=== PATIENT | female | born 1965 | race Caucasian/White ===

== ENCOUNTER 2022-03-02 15:21 | Emergency (ER) | payer OTHER, MEDICAID ==
[~2022-03-02] VITALS: Ht 167.6 cm; Wt 55.0 kg
[2022-03-02 16:39] LABS: BASOPHILS % 0.3 % (0.0-2.0); EOSINOPHILS % 1.1 % (0.0-5.0); HEMATOCRIT. 37.1 % (36.0-48.0); HEMOGLOBIN. 12.7 g/dL (12.0-16.0); LYMPHOCYTES % 26.4 % (20.0-50.0); MEAN CORPUSCULAR HEMOGLOBIN 31.8 pg (28.0-32.0); MEAN CORPUSCULAR VOLUME 92.9 fL (81.0-99.0); MEAN PLATELET VOLUME 6.4 fl (7.4-10.4); NEUTROPHILS % 67.2 % (40.0-76.0); PLATELET 209 x1000/uL (130-400); RED BLOOD CELL COUNT 3.99 mill/uL (4.2-5.4)
[2022-03-02 16:47] LABS: CHLORIDE 100 mEq/L (98-107)
[2022-03-02 23:53] VITALS: BP 126/81
== END 2022-03-02 23:54 | disposition home or self-care (01) ==
LOC: ER 15:21 → EDBD 15:21 → ER 23:54
DX: R07.2 Precordial pain (principal); E87.1 Hypo-osmolality and hyponatremia; R94.31 Abnormal electrocardiogram [ECG] [EKG]; F12.90 Cannabis use, unspecified, uncomplicated; Z72.89 Other problems related to lifestyle
CPT/HCPCS: 36415; 71045; 80053; 83880; 84484; 85025; 93005; 99285

== ENCOUNTER 2022-11-06 12:39 | Emergency (ER) | payer MEDICAID, OTHER ==
[~2022-11-06] VITALS: Ht 160 cm; Wt 61.0 kg
[2022-11-06 12:43] VITALS: BP 183/118
[2022-11-06 14:06] LABS: BASOPHILS % 0.3 % (0.0-2.0); EOSINOPHILS % 3.2 % (0.0-5.0); HEMATOCRIT. 44.9 % (36.0-48.0); HEMOGLOBIN. 15.1 g/dL (12.0-16.0); LYMPHOCYTES % 17.2 % (20.0-50.0); MEAN CORPUSCULAR HEMOGLOBIN 32.1 pg (28.0-32.0); MEAN CORPUSCULAR VOLUME 95.5 fL (81.0-99.0); MEAN PLATELET VOLUME 6.9 fl (7.4-10.4); MONOCYTES % 7.9 % (2.0-8.0); NEUTROPHILS % 71.4 % (40.0-76.0); PLATELET 207 x1000/uL (130-400); RED CELL DISTRIBUTION WIDTH 13.4 % (11.6-14.6)
[2022-11-06 14:12] LABS: CHLORIDE 98 mEq/L (98-107)
[2022-11-06 14:15] LABS: INR 0.9; PROTHROMBIN TIME 10.2 sec (9.6-11.0)
[2022-11-06 15:06] LABS: HCG SCREEN NEGATIVE
[2022-11-06] MEDS ORDERED: IBUP-2028 MT (17:06)
== END 2022-11-06 17:34 | disposition home or self-care (01) ==
LOC: ER 13:13
DX: N93.9 Abnormal uterine and vaginal bleeding, unspecified (principal); I10 Essential (primary) hypertension; Z88.5 Allergy status to narcotic agent; Z88.6 Allergy status to analgesic agent
CPT/HCPCS: 36415; 76830; 76856; 80053; 84703; 85025; 86850; 86900; 99284

== ENCOUNTER 2024-10-23 17:32 | Inpatient (IN) | payer OTHER ==
[~2024-10-23] VITALS: Ht 162.6 cm; Wt 43.1 kg
[~2024-10-23 17:32] MED LIST: ALBU90AE INH; AMLO10TA80 PO; FOLI-43 PO; FURO40TA5 PO; HYDR50TA39 PO; ISOS30TA91 PO; LEVO25TA7 PO; LIP40 PO; PANT40TA51 PO; SUCR1TAB PO
[2024-10-23 19:45] LABS: HEMATOCRIT. 23.2 % (36.0-48.0); HEMOGLOBIN. 7.6 g/dL (12.0-16.0); MEAN CORPUSCULAR HEMOGLOBIN 22.4 pg (28.0-32.0); MEAN CORPUSCULAR HGB CONC 32.6 g/dL (31.0-37.0); MEAN CORPUSCULAR VOLUME 68.7 fL (81.0-99.0); MEAN PLATELET VOLUME 5.6 fl (7.4-10.4); PLATELET 644 x1000/uL (130-400); RED BLOOD CELL COUNT 3.38 mill/uL (4.2-5.4); WHITE BLOOD COUNT 15.6 x1000/uL (4.5-11.0)
[2024-10-23 19:54] LABS: DIFFERENTIAL COMMENT 1
[2024-10-23 19:55] LABS: CHLORIDE 95 mEq/L (98-107); SODIUM 132 mEq/L (136-145)
[2024-10-23 19:56] LABS: CARBON DIOXIDE 30 mEq/L (21-32)
[2024-10-23 19:57] LABS: CALCIUM 7.7 mg/dL (8.7-10.4)
[2024-10-23 20:01] LABS: CREATININE 0.7 mg/dL (0.6-1.0)
[2024-10-23 20:02] LABS: GLUCOSE 96 mg/dL (70-105); TROPONIN I HIGH SENSITIVITY 27 ng/L (3.0-34); UREA NITROGEN BLOOD 10 mg/dL (9-23)
[2024-10-23 20:03] LABS: ALANINE AMINOTRANSFERASE 12 IU/L (10-49); ASPARTATE AMINOTRANSFERASE 20 IU/L (<34)
[2024-10-23 20:04] LABS: ALBUMIN 2.8 g/dL (3.2-4.8); BILIRUBIN DIRECT 0.2 mg/dL (<=3.0); BILIRUBIN TOTAL 0.5 mg/dL (0.1-1.0); PROTEIN TOTAL 6.5 g/dL (6.0-8.3)
[2024-10-23 20:07] LABS: ETHANOL BLOOD < 10 mg/dL (<10)
[2024-10-23 20:10] LABS: INR 1.1; PARTIAL THROMBOPLASTIN TIME 32.5 sec (23.4-31.0); PROTHROMBIN TIME 12.5 sec (9.6-11.0)
[2024-10-23] MEDS: KCL 20MEQ/100ML PREMIX 100 ML IV SCH (20:34)
[2024-10-23] MEDS: POTASSIUM CHLORIDE 20MEQ TABLET SR PO ONE (20:34)
[2024-10-23 20:46] LABS: ANISOCYTOSIS 2+; HYPOCHROMASIA 1+; MICROCYTOSIS 3+; PLATELET ESTIMATE INCREASED
[2024-10-23] MEDS: PIPERACILLIN/TAZO 3.375G/50ML 50 ML IV ONE (20:51)
[2024-10-23] MEDS ORDERED: IPRATROPIUM/ALBUTEROL 0.5-3(2.5)MG/3ML NEB HHN PRN (21:15)
[2024-10-23] MEDS ORDERED: HYDRALAZINE 20MG/ML VIAL IV PRN (21:15)
[2024-10-23] MEDS: VANCOMYCIN 1G PREMIX 200 ML IV ONE (21:26)
[2024-10-23] MEDS ORDERED: AMLODIPINE 10MG TABLET PO SCH (21:45)
[2024-10-23] MEDS: BUDESONIDE 0.5MG/2ML NEB HHN SCH (22:29)
[2024-10-23 22:30] VITALS: PULSE 107; RESP 18; O2SAT 97
[2024-10-23] MEDS: IPRATROPIUM BROMIDE (0.02%) 0.5MG/2.5ML NEB HHN SCH (22:30)
[2024-10-23 23:17] LABS: CREATINE KINASE MB FRACTION 1.1 ng/mL (0.5-3.6); TRIGLYCERIDE 81 mg/dL (0-150)
[2024-10-23 23:18] LABS: LDL CHOLESTEROL 60 mg/dL (5-100); TROPONIN I HIGH SENSITIVITY 28 ng/L (3.0-34)
[2024-10-23 23:19] LABS: CHOLESTEROL 104 mg/dL (<200); CREATINE KINASE 53 IU/L (34-145); HDL CHOLESTEROL 27 mg/dL (>65); PHOSPHORUS 2.9 mg/dL (2.5-4.9)
[2024-10-23 23:21] LABS: T4 FREE 1.16 ng/dL (0.89-1.76); THYROID STIMULATING HORMONE 4.76 uIU/mL (0.55-4.78)
[2024-10-23] MEDS: AMLODIPINE 5MG TABLET PO NR (23:51)
[2024-10-24] VITALS (9 sets, daily range): BP systolic 90–128; BP diastolic 50–85; PULSE 74–106; RESP 18–20; TEMP 35.6–37.3; O2SAT 92–99
[2024-10-24 00:34] LABS: POTASSIUM 2.5 mEq/L (3.5-5.1)
[2024-10-24] MEDS: AZITHROMYCIN 500MG/250ML 250 ML IV SCH ×2 (01:14→23:12)
[2024-10-24] MEDS: CEFTRIAXONE 1GM/50ML 50 ML IV SCH ×2 (01:14→23:11)
[2024-10-24] MEDS ORDERED: *PATIENT'S OWN MEDICATION STORAGE XX SCH (01:15)
[2024-10-24] MEDS: KCL 20MEQ/100ML PREMIX 100 ML IV NR (03:02)
[2024-10-24] MEDS: MAGNESIUM 2 G PREMIX 50 ML IV NR (03:02)
[2024-10-24] MEDS: POTASSIUM CHLORIDE 20MEQ TABLET SR PO NR (03:02)
[2024-10-24] MEDS ORDERED: POLYETHYLENE GLYCOL 3350 (17GM) 1 DOSE PACK PO PRN (05:45)
[2024-10-24 06:21] LABS: HEMATOCRIT. 24.7 % (36.0-48.0); HEMOGLOBIN. 7.9 g/dL (12.0-16.0); MEAN CORPUSCULAR HEMOGLOBIN 22.2 pg (28.0-32.0); MEAN CORPUSCULAR HGB CONC 32.1 g/dL (31.0-37.0); PLATELET 701 x1000/uL (130-400); RED BLOOD CELL COUNT 3.58 mill/uL (4.2-5.4); WHITE BLOOD COUNT 14.8 x1000/uL (4.5-11.0)
[2024-10-24 06:22] LABS: CHLORIDE 94 mEq/L (98-107); SODIUM 131 mEq/L (136-145)
[2024-10-24 06:23] LABS: CALCIUM 8.2 mg/dL (8.7-10.4); CARBON DIOXIDE 29 mEq/L (21-32)
[2024-10-24 06:28] LABS: CREATININE 0.7 mg/dL (0.6-1.0); GLUCOSE 75 mg/dL (70-105); UREA NITROGEN BLOOD 9 mg/dL (9-23)
[2024-10-24] MEDS: BLOOD SUGAR DIAGNOSTIC STRIP TEST SCH (06:28)
[2024-10-24 06:29] LABS: ASPARTATE AMINOTRANSFERASE 21 IU/L (<34)
[2024-10-24] MEDS: DEXT 5%/0.45% NACL 1000ML 1,000 ML IV SCH (06:29)
[2024-10-24] MEDS: PANTOPRAZOLE 40MG DR TABLET PO SCH (06:29)
[2024-10-24] MEDS: LEVOTHYROXINE SODIUM 25MCG TABLET PO SCH (06:29)
[2024-10-24 06:30] LABS: ALANINE AMINOTRANSFERASE 12 IU/L (10-49); BILIRUBIN TOTAL 0.4 mg/dL (0.1-1.0); PROTEIN TOTAL 6.3 g/dL (6.0-8.3)
[2024-10-24 07:46] LABS: DIFFERENTIAL COMMENT 1
[2024-10-24] MEDS: ISOSORBIDE MONONITRATE 30MG TABLET SR 24HR PO SCH (09:27)
[2024-10-24] MEDS: LOSARTAN 25 MG TABLET PO SCH (09:27)
[2024-10-24] MEDS: AMLODIPINE 10MG TABLET PO SCH (09:28)
[2024-10-24] MEDS: FUROSEMIDE 40MG/4ML VIAL IVP SCH (09:29)
[2024-10-24 14:48] LABS: LACTATE DEHYDROGENASE 298 IU/L (120-246)
[2024-10-24] MEDS ORDERED: POTASSIUM CHLORIDE 40 MEQ in DEXT 5% WATER 230 ML IV ONE (15:30)
[2024-10-24 16:05] LABS: PROTEIN BODY FLUID 4.2 gm/dL
[2024-10-24 16:51] LABS: BODY FLUID MONOCYTES 7 %; BODY FLUID RBC 2900 /cu mm (0-2000); BODY FLUID WBC 3025 /cu mm (0-200)
[2024-10-24] MEDS: KCL 20MEQ/100ML X 2 FOR TOTAL KCL 40MEQ/200ML IV SCH (17:52)
[2024-10-24] MEDS: ATORVASTATIN CALCIUM 40MG TABLET PO SCH (21:31)
[2024-10-24 22:38] LABS: PLATELET ESTIMATE INCREASED
[2024-10-24 22:39] LABS: ANISOCYTOSIS 3+; HYPOCHROMASIA 1+; MICROCYTOSIS 3+
[2024-10-25] VITALS (10 sets, daily range): BP systolic 112–126; BP diastolic 64–75; PULSE 88–100; RESP 19–21; TEMP 36.4–37.1; O2SAT 96–99
[2024-10-25 06:13] LABS: CHLORIDE 96 mEq/L (98-107); POTASSIUM 3.8 mEq/L (3.5-5.1); SODIUM 130 mEq/L (136-145)
[2024-10-25 06:14] LABS: CARBON DIOXIDE 24 mEq/L (21-32)
[2024-10-25 06:53] LABS: CREATININE 0.8 mg/dL (0.6-1.0); GLUCOSE 99 mg/dL (70-105); UREA NITROGEN BLOOD 15 mg/dL (9-23)
[2024-10-25 06:55] LABS: ALANINE AMINOTRANSFERASE 11 IU/L (10-49); ALBUMIN 2.7 g/dL (3.2-4.8); ASPARTATE AMINOTRANSFERASE 23 IU/L (<34)
[2024-10-25 06:56] LABS: BILIRUBIN TOTAL 0.3 mg/dL (0.1-1.0); PROTEIN TOTAL 5.8 g/dL (6.0-8.3)
[2024-10-25 07:03] LABS: HEMATOCRIT. 25.8 % (36.0-48.0); HEMOGLOBIN. 7.9 g/dL (12.0-16.0); MEAN CORPUSCULAR HEMOGLOBIN 21.3 pg (28.0-32.0); MEAN CORPUSCULAR HGB CONC 30.7 g/dL (31.0-37.0); MEAN CORPUSCULAR VOLUME 69.4 fL (81.0-99.0); MEAN PLATELET VOLUME 6.2 fl (7.4-10.4); PLATELET 731 x1000/uL (130-400); RED BLOOD CELL COUNT 3.71 mill/uL (4.2-5.4); RED CELL DISTRIBUTION WIDTH 25.6 % (11.6-14.6); WHITE BLOOD COUNT 13.6 x1000/uL (4.5-11.0)
[2024-10-25 08:07] LABS: DIFFERENTIAL COMMENT 1
[2024-10-25] MEDS: FERROUS SULFATE 325MG TABLET PO SCH (08:59)
[2024-10-25 16:21] LABS: HYPOCHROMASIA 2+; MICROCYTOSIS 2+; PLATELET ESTIMATE INCREASED; TARGET CELLS 1+
[2024-10-26] VITALS (10 sets, daily range): BP systolic 106–122; BP diastolic 59–83; PULSE 80–105; RESP 18–20; TEMP 36.3–37.3; O2SAT 96–98
[2024-10-26 07:12] LABS: CARBON DIOXIDE 29 mEq/L (21-32); CHLORIDE 96 mEq/L (98-107); HEMATOCRIT. 24.5 % (36.0-48.0); HEMOGLOBIN. 7.8 g/dL (12.0-16.0); MEAN CORPUSCULAR HEMOGLOBIN 21.9 pg (28.0-32.0); MEAN CORPUSCULAR HGB CONC 31.7 g/dL (31.0-37.0); MEAN CORPUSCULAR VOLUME 69.2 fL (81.0-99.0); MEAN PLATELET VOLUME 6.3 fl (7.4-10.4); PLATELET 668 x1000/uL (130-400); RED BLOOD CELL COUNT 3.55 mill/uL (4.2-5.4); RED CELL DISTRIBUTION WIDTH 25.5 % (11.6-14.6); SODIUM 133 mEq/L (136-145); WHITE BLOOD COUNT 11.2 x1000/uL (4.5-11.0)
[2024-10-26 07:13] LABS: CALCIUM 7.4 mg/dL (8.7-10.4)
[2024-10-26 07:17] LABS: CREATININE 0.6 mg/dL (0.6-1.0)
[2024-10-26 07:18] LABS: GLUCOSE 75 mg/dL (70-105); UREA NITROGEN BLOOD 12 mg/dL (9-23)
[2024-10-26] MEDS ORDERED: POTASSIUM CHLORIDE 40 MEQ in DEXT 5% WATER 230 ML IV ONE (08:00)
[2024-10-26 08:16] LABS: DIFFERENTIAL COMMENT 1
[2024-10-26] MEDS: MAGNESIUM 4 G PREMIX 100 ML IV SCH (09:00)
[2024-10-26 10:35] LABS: ANISOCYTOSIS 3+; HYPOCHROMASIA 2+; MICROCYTOSIS 3+; OVALOCYTES 1+; PLATELET ESTIMATE INCREASED; TEAR DROP CELLS 1+
[2024-10-26] MEDS: POTASSIUM CHLORIDE 20 MEQ in DEXT 5% WATER 100 ML IV SCH (15:18)
[2024-10-26] MEDS: DEXT 5%/0.9% NACL 1,000 ML IV ONE (18:20)
[2024-10-26] MEDS: METRONIDAZOLE 500 MG PREMIX 100 ML IV SCH (18:24)
[2024-10-26] MEDS ORDERED: BISACODYL 10MG SUPP PR PRN (21:00)
[2024-10-26] MEDS: DOCUSATE SODIUM 100MG CAPSULE PO SCH (21:06)
[2024-10-26 23:58] LABS: BG BASE EXCESS 5.9 mmol/L (-2.0-3.0); BG CARBOXYHEMOGLOBIN 1.4 % (0.5-1.5); BG DEOXYHEMOGLOBIN 4.6 % (0.0-5.0); BG FRACTION INSPIRED OXYGEN 32; BG HCO3 ACT 28.7 mmol/L (21.0-28.0); BG METHEMOGLOBIN 0.3 % (0.5-1.5); BG OXYGEN SATURATION 95.3 % (94.0-98.0); BG OXYHEMOGLOBIN 93.7 % (94.0-98.0); BG PH 7.544 (7.350-7.450); BG PO2 72.1 mmHg (83.0-108.0); BG SAMPLE SITE RIGHT RADIAL; BG TOTAL HEMOGLOBIN 8.4 g/dL (12.0-16.0); BG VENT MODE NASAL CANNULA
[2024-10-27] VITALS (42 sets, daily range): BP systolic 102–154; BP diastolic 68–107; PULSE 77–96; RESP 14–25; TEMP 36.1–36.6; O2SAT 93–100
[2024-10-27 04:48] LABS: HEMATOCRIT. 24.8 % (36.0-48.0); HEMOGLOBIN. 7.7 g/dL (12.0-16.0); MEAN CORPUSCULAR HEMOGLOBIN 21.5 pg (28.0-32.0); MEAN CORPUSCULAR HGB CONC 31.1 g/dL (31.0-37.0); MEAN CORPUSCULAR VOLUME 69.3 fL (81.0-99.0); PLATELET 676 x1000/uL (130-400); RED BLOOD CELL COUNT 3.58 mill/uL (4.2-5.4); RED CELL DISTRIBUTION WIDTH 26.1 % (11.6-14.6); WHITE BLOOD COUNT 11.4 x1000/uL (4.5-11.0)
[2024-10-27 04:53] LABS: CHLORIDE 99 mEq/L (98-107); POTASSIUM 3.4 mEq/L (3.5-5.1); SODIUM 133 mEq/L (136-145)
[2024-10-27 04:54] LABS: CARBON DIOXIDE 29 mEq/L (21-32)
[2024-10-27 04:55] LABS: CALCIUM 7.3 mg/dL (8.7-10.4)
[2024-10-27 04:59] LABS: CREATININE 0.6 mg/dL (0.6-1.0); GLUCOSE 89 mg/dL (70-105); UREA NITROGEN BLOOD 11 mg/dL (9-23)
[2024-10-27 05:05] LABS: PROTHROMBIN TIME 11.5 sec (9.6-11.0)
[2024-10-27 05:06] LABS: DIFFERENTIAL COMMENT 1
[2024-10-27] MEDS ORDERED: LIDOCAINE HCL/EPINEPHRINE 1%-EPI 1:100,000 20ML VIAL ONE (06:39)
[2024-10-27] MEDS ORDERED: SKIN ADHESIVE 0.7 GM EA TOP ONE (06:39)
[2024-10-27] MEDS ORDERED: POLYMYXIN B SULFATE 500000 UNITS/VIAL ONE ×2 (06:39→10:28)
[2024-10-27] MEDS ORDERED: BUPIVACAINE HCL/PF 0.5% (5MG/ML) 10ML ONE (06:39)
[2024-10-27] MEDS ORDERED: EPINEPHRINE 5 MG in SODIUM CHLORIDE 0.9% 250 ML IV PRN (07:30)
[2024-10-27] MEDS ORDERED: TETRACAINE/BENZOCAINE/BUTAMBEN 20 GM SPRAY MM ONE (07:52)
[2024-10-27] MEDS ORDERED: NOREPINEPHRINE 8MG/250ML PMX 250 ML IV PRN (08:00)
[2024-10-27] MEDS ORDERED: FENTANYL CITRATE/PF 50MCG/ML 2ML VIAL ONE (08:06)
[2024-10-27] MEDS ORDERED: HYDROMORPHONE HCL/PF 1MG/ML INJ ONE ×2 (08:07→11:01)
[2024-10-27] MEDS ORDERED: ROCURONIUM BROMIDE 10MG/ML VIAL 5ML IV ONE (08:29)
[2024-10-27] MEDS ORDERED: SUGAMMADEX SODIUM 200MG/2ML VIAL IV ONE (10:33)
[2024-10-27 11:59] LABS: BG BASE EXCESS -0.5 mmol/L (-2.0-3.0); BG CARBOXYHEMOGLOBIN 0.6 % (0.5-1.5); BG FRACTION INSPIRED OXYGEN 50; BG HCO3 ACT 25.2 mmol/L (21.0-28.0); BG METHEMOGLOBIN 0.1 % (0.5-1.5); BG OXYHEMOGLOBIN 98.3 % (94.0-98.0); BG PH 7.357 (7.350-7.450); BG PO2 150.5 mmHg (83.0-108.0); BG SAMPLE SITE ALINE; BG TOTAL HEMOGLOBIN 10.9 g/dL (12.0-16.0); BG VENT MODE MASK - CPAP
[2024-10-27] MEDS ORDERED: HYDROMORPHONE HCL/PF 1MG/ML INJ IV PRN ×2 (12:00)
[2024-10-27] MEDS ORDERED: GLYCOPYRROLATE 0.2 MG/ML 2ML VIAL IV PRN (12:00)
[2024-10-27] MEDS ORDERED: ONDANSETRON HCL 4MG/2ML INJ IV PRN (12:00)
[2024-10-27 12:22] LABS: HEMATOCRIT. 30.2 % (36.0-48.0); HEMOGLOBIN. 9.8 g/dL (12.0-16.0); MEAN CORPUSCULAR HEMOGLOBIN 24.2 pg (28.0-32.0); MEAN CORPUSCULAR HGB CONC 32.5 g/dL (31.0-37.0); MEAN CORPUSCULAR VOLUME 74.3 fL (81.0-99.0); MEAN PLATELET VOLUME 5.8 fl (7.4-10.4); PLATELET 669 x1000/uL (130-400); RED BLOOD CELL COUNT 4.07 mill/uL (4.2-5.4); RED CELL DISTRIBUTION WIDTH 26.6 % (11.6-14.6); WHITE BLOOD COUNT 16.8 x1000/uL (4.5-11.0)
[2024-10-27 12:31] LABS: CARBON DIOXIDE 24 mEq/L (21-32); CHLORIDE 104 mEq/L (98-107); POTASSIUM 3.3 mEq/L (3.5-5.1); SODIUM 134 mEq/L (136-145)
[2024-10-27 12:33] LABS: CREATININE 0.6 mg/dL (0.6-1.0); GLUCOSE 197 mg/dL (70-105)
[2024-10-27 12:35] LABS: ALANINE AMINOTRANSFERASE 10 IU/L (10-49); ALBUMIN 2.6 g/dL (3.2-4.8); ASPARTATE AMINOTRANSFERASE 25 IU/L (<34); UREA NITROGEN BLOOD 8 mg/dL (9-23)
[2024-10-27 12:36] LABS: BILIRUBIN TOTAL 0.3 mg/dL (0.1-1.0); DIFFERENTIAL COMMENT 1; PROTEIN TOTAL 5.5 g/dL (6.0-8.3)
[2024-10-27 17:34] LABS: PROTEIN BODY FLUID 3.8 gm/dL
[2024-10-27] MEDS: POTASSIUM CHLORIDE 20MEQ/PACKET PO NR (18:11)
[2024-10-27] MEDS: ACETAMINOPHEN 325MG TABLET PO PRN (22:09)
[2024-10-27 23:56] LABS: BODY FLUID RBC 6250 /cu mm (0-2000); BODY FLUID WBC 275 /cu mm (0-200)
[2024-10-27 23:57] LABS: BODY FLUID MONOCYTES 7 %
[2024-10-28] VITALS (49 sets, daily range): BP systolic 108–135; BP diastolic 58–106; PULSE 78–99; RESP 16–27; TEMP 36.6–37.1; O2SAT 9–99
[2024-10-28 11:02] LABS: HEMATOCRIT. 30.7 % (36.0-48.0); HEMOGLOBIN. 9.5 g/dL (12.0-16.0); MEAN CORPUSCULAR HGB CONC 30.8 g/dL (31.0-37.0); MEAN CORPUSCULAR VOLUME 74.7 fL (81.0-99.0); MEAN PLATELET VOLUME 5.7 fl (7.4-10.4); PLATELET 665 x1000/uL (130-400); RED BLOOD CELL COUNT 4.11 mill/uL (4.2-5.4); RED CELL DISTRIBUTION WIDTH 26.8 % (11.6-14.6); WHITE BLOOD COUNT 17.6 x1000/uL (4.5-11.0)
[2024-10-28 11:52] LABS: DIFFERENTIAL COMMENT 1
[2024-10-28 12:59] LABS: CHLORIDE 101 mEq/L (98-107); POTASSIUM 4.4 mEq/L (3.5-5.1); SODIUM 131 mEq/L (136-145)
[2024-10-28 13:00] LABS: CALCIUM 7.8 mg/dL (8.7-10.4); CARBON DIOXIDE 24 mEq/L (21-32)
[2024-10-28 13:05] LABS: CREATININE 0.5 mg/dL (0.6-1.0); GLUCOSE 84 mg/dL (70-105); UREA NITROGEN BLOOD 10 mg/dL (9-23)
[2024-10-28 14:59] LABS: ANISOCYTOSIS 2+; MICROCYTOSIS 1+; PLATELET ESTIMATE MARKEDLY INCREASED
[2024-10-28 16:44] LABS: ANISOCYTOSIS 3+; HYPOCHROMASIA 1+; MICROCYTOSIS 2+; PLATELET ESTIMATE MARKEDLY INCREASED
[2024-10-28 19:35] LABS: ANISOCYTOSIS 3+; HYPOCHROMASIA 2+; MICROCYTOSIS 3+; PLATELET ESTIMATE INCREASED; TEAR DROP CELLS 1+
[2024-10-29] VITALS (71 sets, daily range): BP systolic 87–144; BP diastolic 57–89; PULSE 83–112; RESP 16–31; TEMP 36.5–37.1; O2SAT 74–100
[2024-10-29 07:24] LABS: CARBON DIOXIDE 29 mEq/L (21-32); CHLORIDE 99 mEq/L (98-107); SODIUM 134 mEq/L (136-145)
[2024-10-29 07:25] LABS: CALCIUM 7.8 mg/dL (8.7-10.4)
[2024-10-29 07:30] LABS: CREATININE 0.5 mg/dL (0.6-1.0); GLUCOSE 78 mg/dL (70-105); UREA NITROGEN BLOOD 10 mg/dL (9-23)
[2024-10-29 08:40] LABS: HEMATOCRIT. 31.8 % (36.0-48.0); HEMOGLOBIN. 10.3 g/dL (12.0-16.0); MEAN CORPUSCULAR HEMOGLOBIN 23.4 pg (28.0-32.0); MEAN CORPUSCULAR HGB CONC 32.4 g/dL (31.0-37.0); MEAN CORPUSCULAR VOLUME 72.3 fL (81.0-99.0); MEAN PLATELET VOLUME 6.3 fl (7.4-10.4); PLATELET 675 x1000/uL (130-400); RED BLOOD CELL COUNT 4.39 mill/uL (4.2-5.4); RED CELL DISTRIBUTION WIDTH 26.7 % (11.6-14.6); WHITE BLOOD COUNT 12.9 x1000/uL (4.5-11.0)
[2024-10-29 09:16] LABS: DIFFERENTIAL COMMENT 1
[2024-10-29 15:53] LABS: ANISOCYTOSIS 2+; HYPOCHROMASIA 1+; PLATELET ESTIMATE INCREASED
[2024-10-29 15:54] LABS: MICROCYTOSIS 2+
[2024-10-29] MEDS: MAGNESIUM HYDROXIDE 400MG/5ML 30ML UDC PO SCH (17:03)
[2024-10-30] VITALS (39 sets, daily range): BP systolic 93–146; BP diastolic 61–90; PULSE 89–118; RESP 15–28; TEMP 36.5–36.8; O2SAT 98–100
[2024-10-30 07:24] LABS: CHLORIDE 98 mEq/L (98-107); POTASSIUM 3.9 mEq/L (3.5-5.1); SODIUM 135 mEq/L (136-145)
[2024-10-30 07:25] LABS: CALCIUM 7.7 mg/dL (8.7-10.4); CARBON DIOXIDE 32 mEq/L (21-32)
[2024-10-30 07:30] LABS: CREATININE 0.6 mg/dL (0.6-1.0); GLUCOSE 98 mg/dL (70-105); UREA NITROGEN BLOOD 11 mg/dL (9-23)
[2024-10-30 08:43] LABS: BASOPHILS % 0.2 % (0.0-2.0); EOSINOPHILS % 0.8 % (0.0-5.0); HEMATOCRIT. 30.2 % (36.0-48.0); HEMOGLOBIN. 9.7 g/dL (12.0-16.0); MEAN CORPUSCULAR HEMOGLOBIN 23.2 pg (28.0-32.0); MEAN CORPUSCULAR HGB CONC 32.1 g/dL (31.0-37.0); MEAN CORPUSCULAR VOLUME 72.3 fL (81.0-99.0); MEAN PLATELET VOLUME 6.4 fl (7.4-10.4); MONOCYTES % 9.7 % (2.0-8.0); NEUTROPHILS % 80.3 % (40.0-76.0); PLATELET 701 x1000/uL (130-400); RED BLOOD CELL COUNT 4.18 mill/uL (4.2-5.4); RED CELL DISTRIBUTION WIDTH 27.2 % (11.6-14.6); WHITE BLOOD COUNT 11.3 x1000/uL (4.5-11.0)
[2024-10-30 08:52] LABS: DIFFERENTIAL COMMENT 1
[2024-10-30] MEDS: ENOXAPARIN 40MG/0.4ML SYR SUBCUT SCH (20:38)
[2024-10-31] VITALS (10 sets, daily range): BP systolic 97–135; BP diastolic 62–86; PULSE 93–113; RESP 15–22; TEMP 36.3–36.7; O2SAT 73–100
[2024-10-31 07:04] LABS: ALBUMIN 2.7 g/dL (3.2-4.8)
[2024-10-31 07:13] LABS: PREALBUMIN < 5.0 mg/dl (10.0-40.0)
[2024-10-31 09:16] LABS: CHLORIDE 100 mEq/L (98-107); POTASSIUM 3.8 mEq/L (3.5-5.1); SODIUM 134 mEq/L (136-145)
[2024-10-31 09:17] LABS: CALCIUM 7.7 mg/dL (8.7-10.4); CARBON DIOXIDE 28 mEq/L (21-32)
[2024-10-31 09:22] LABS: CREATININE 0.6 mg/dL (0.6-1.0); GLUCOSE 76 mg/dL (70-105); UREA NITROGEN BLOOD 12 mg/dL (9-23)
[2024-10-31 09:24] LABS: BASOPHILS % 1.1 % (0.0-2.0); EOSINOPHILS % 2.5 % (0.0-5.0); HEMATOCRIT. 31.4 % (36.0-48.0); LYMPHOCYTES % 9.6 % (20.0-50.0); MEAN CORPUSCULAR HEMOGLOBIN 23.2 pg (28.0-32.0); MEAN CORPUSCULAR VOLUME 72.5 fL (81.0-99.0); MEAN PLATELET VOLUME 6.4 fl (7.4-10.4); MONOCYTES % 8.8 % (2.0-8.0); PLATELET 690 x1000/uL (130-400); RED BLOOD CELL COUNT 4.33 mill/uL (4.2-5.4); RED CELL DISTRIBUTION WIDTH 27.6 % (11.6-14.6); WHITE BLOOD COUNT 8.5 x1000/uL (4.5-11.0)
[2024-10-31 10:00] LABS: ADD RBC MORPHOLOGY YES; DIFFERENTIAL COMMENT 1
[2024-10-31 16:20] LABS: ANISOCYTOSIS 3+; HYPOCHROMASIA 1+; MICROCYTOSIS 2+; PLATELET ESTIMATE INCREASED
[2024-11-01] VITALS (7 sets, daily range): BP systolic 116–148; BP diastolic 74–86; PULSE 99–117; RESP 18–23; TEMP 36.6–37.3; O2SAT 97–100
[2024-11-01 08:59] LABS: CHLORIDE 99 mEq/L (98-107); POTASSIUM 3.2 mEq/L (3.5-5.1); SODIUM 135 mEq/L (136-145)
[2024-11-01 09:00] LABS: CALCIUM 8.3 mg/dL (8.7-10.4); CARBON DIOXIDE 30 mEq/L (21-32)
[2024-11-01 09:05] LABS: CREATININE 0.7 mg/dL (0.6-1.0); GLUCOSE 129 mg/dL (70-105); UREA NITROGEN BLOOD 13 mg/dL (9-23)
[2024-11-01 09:09] LABS: HEMATOCRIT. 32.6 % (36.0-48.0); HEMOGLOBIN. 10.2 g/dL (12.0-16.0); MEAN CORPUSCULAR HEMOGLOBIN 23.1 pg (28.0-32.0); MEAN CORPUSCULAR HGB CONC 31.3 g/dL (31.0-37.0); MEAN CORPUSCULAR VOLUME 73.8 fL (81.0-99.0); PLATELET 734 x1000/uL (130-400); RED BLOOD CELL COUNT 4.42 mill/uL (4.2-5.4); RED CELL DISTRIBUTION WIDTH 26.6 % (11.6-14.6); WHITE BLOOD COUNT 12.9 x1000/uL (4.5-11.0)
[2024-11-01 09:11] LABS: DIFFERENTIAL COMMENT 1
[2024-11-01] MEDS: POTASSIUM CHLORIDE 20MEQ/PACKET PO SCH (10:43)
[2024-11-01 14:54] LABS: ANISOCYTOSIS 2+; HYPOCHROMASIA 1+; MICROCYTOSIS 1+; PLATELET ESTIMATE MARKEDLY INCREASED
[2024-11-02] VITALS: BP 135/84; PULSE 105; RESP 27; TEMP 36.8; O2SAT 99
[2024-11-02 04:00] VITALS: BP 133/87; PULSE 97; RESP 21; O2SAT 96
[2024-11-02 08:00] VITALS: BP 131/80; PULSE 103; RESP 21; TEMP 36.7; O2SAT 98
[2024-11-02 12:00] VITALS: BP 114/75; PULSE 122; RESP 37; TEMP 36.8; O2SAT 98
[2024-11-02 16:00] VITALS: BP 115/77; PULSE 111; RESP 22; TEMP 36.6; O2SAT 98
[2024-11-02 20:00] VITALS: BP 101/65; PULSE 110; RESP 30; TEMP 37.5; O2SAT 97
[2024-11-03] VITALS (7 sets, daily range): BP systolic 90–132; BP diastolic 59–88; PULSE 85–119; RESP 17–29; TEMP 36.8–38.4; O2SAT 93–99
[2024-11-03 07:52] LABS: HEMATOCRIT. 27.2 % (36.0-48.0); HEMOGLOBIN. 8.7 g/dL (12.0-16.0); MEAN PLATELET VOLUME 6.3 fl (7.4-10.4); PLATELET 573 x1000/uL (130-400); RED BLOOD CELL COUNT 3.78 mill/uL (4.2-5.4); WHITE BLOOD COUNT 19.4 x1000/uL (4.5-11.0)
[2024-11-03 08:07] LABS: CALCIUM 8.3 mg/dL (8.7-10.4); CARBON DIOXIDE 31 mEq/L (21-32); CHLORIDE 97 mEq/L (98-107); POTASSIUM 3.9 mEq/L (3.5-5.1); SODIUM 134 mEq/L (136-145)
[2024-11-03 08:13] LABS: CREATININE 0.6 mg/dL (0.6-1.0); GLUCOSE 89 mg/dL (70-105); UREA NITROGEN BLOOD 14 mg/dL (9-23)
[2024-11-03 08:30] LABS: DIFFERENTIAL COMMENT 1
[2024-11-03] MEDS: ACETAMINOPHEN 325MG TABLET PO PRN (17:07)
[2024-11-03 19:09] LABS: ANISOCYTOSIS 3+; HYPOCHROMASIA 1+; MICROCYTOSIS 2+; PLATELET ESTIMATE SLIGHTLY INCREASED
[2024-11-04] VITALS: BP 119/70; PULSE 111; RESP 23; TEMP 36.6; O2SAT 95
[2024-11-04 04:00] VITALS: BP 111/67; PULSE 110; RESP 24; TEMP 36.8; O2SAT 97
[2024-11-04 07:16] LABS: CARBON DIOXIDE 30 mEq/L (21-32); CHLORIDE 94 mEq/L (98-107); POTASSIUM 3.6 mEq/L (3.5-5.1); SODIUM 132 mEq/L (136-145)
[2024-11-04 07:18] LABS: CALCIUM 8.1 mg/dL (8.7-10.4)
[2024-11-04 07:22] LABS: CREATININE 0.6 mg/dL (0.6-1.0); GLUCOSE 82 mg/dL (70-105)
[2024-11-04 07:23] LABS: UREA NITROGEN BLOOD 15 mg/dL (9-23)
[2024-11-04 07:44] VITALS: BP 106/66; PULSE 79; RESP 19; TEMP 36.8; O2SAT 98
[2024-11-04 07:46] LABS: HEMATOCRIT. 25.1 % (36.0-48.0); HEMOGLOBIN. 8.2 g/dL (12.0-16.0); MEAN CORPUSCULAR HEMOGLOBIN 23.3 pg (28.0-32.0); MEAN CORPUSCULAR HGB CONC 32.7 g/dL (31.0-37.0); MEAN CORPUSCULAR VOLUME 71.3 fL (81.0-99.0); MEAN PLATELET VOLUME 6.3 fl (7.4-10.4); PLATELET 559 x1000/uL (130-400); RED BLOOD CELL COUNT 3.52 mill/uL (4.2-5.4); RED CELL DISTRIBUTION WIDTH 26.7 % (11.6-14.6); WHITE BLOOD COUNT 21.6 x1000/uL (4.5-11.0)
[2024-11-04 09:36] LABS: DIFFERENTIAL COMMENT 1
[2024-11-04 12:00] VITALS: BP 105/64; PULSE 93; RESP 20; TEMP 36.7; O2SAT 100
[2024-11-04 16:00] VITALS: BP 102/68; PULSE 107; RESP 22; TEMP 36.7; O2SAT 97
[2024-11-04 18:55] LABS: PLATELET ESTIMATE INCREASED
[2024-11-04 18:56] LABS: ANISOCYTOSIS 3+; HYPOCHROMASIA 1+; MICROCYTOSIS 2+
[2024-11-04 20:00] VITALS: BP 104/60; PULSE 107; RESP 24; TEMP 37.7; O2SAT 98
[2024-11-04] MEDS: AMOXICILLIN/POTASSIUM CLAVULANATE 875/125MG TAB PO SCH (20:52)
[2024-11-05] VITALS (7 sets, daily range): BP systolic 99–136; BP diastolic 64–86; PULSE 73–102; RESP 15–28; TEMP 36.5–36.9; O2SAT 97–100
[2024-11-05 06:41] LABS: CARBON DIOXIDE 31 mEq/L (21-32); CHLORIDE 98 mEq/L (98-107); POTASSIUM 3.9 mEq/L (3.5-5.1); SODIUM 135 mEq/L (136-145)
[2024-11-05 06:42] LABS: CALCIUM 7.8 mg/dL (8.7-10.4)
[2024-11-05 06:47] LABS: CREATININE 0.7 mg/dL (0.6-1.0); GLUCOSE 87 mg/dL (70-105); UREA NITROGEN BLOOD 21 mg/dL (9-23)
[2024-11-05 07:34] LABS: HEMATOCRIT 23.1 % (36.0-48.0); HEMOGLOBIN 7.7 g/dL (12.0-16.0); MEAN CORPUSCULAR HEMOGLOBIN 23.5 pg (28.0-32.0); MEAN CORPUSCULAR HGB CONC 33.3 g/dL (31.0-37.0); MEAN CORPUSCULAR VOLUME 70.6 fL (81.0-99.0); PLATELET 582 x1000/uL (130-400); RED BLOOD CELL COUNT 3.27 mill/uL (4.2-5.4); RED CELL DISTRIBUTION WIDTH 26.9 % (11.6-14.6); WHITE BLOOD COUNT 11.6 x1000/uL (4.5-11.0)
[2024-11-05] MEDS: ONDANSETRON HCL 4MG/2ML INJ IV PRN (22:30)
[2024-11-06] VITALS: BP 111/79; PULSE 104; TEMP 36.6; O2SAT 98
[2024-11-06 04:00] VITALS: BP 147/86; PULSE 95; TEMP 36.5; O2SAT 97
[2024-11-06 08:00] VITALS: BP 141/85; PULSE 97; TEMP 36.6; O2SAT 100
[2024-11-06 10:17] LABS: HEMATOCRIT. 27.1 % (36.0-48.0); HEMOGLOBIN. 8.5 g/dL (12.0-16.0); MEAN CORPUSCULAR HEMOGLOBIN 22.7 pg (28.0-32.0); MEAN CORPUSCULAR HGB CONC 31.4 g/dL (31.0-37.0); MEAN CORPUSCULAR VOLUME 72.1 fL (81.0-99.0); MEAN PLATELET VOLUME 6.7 fl (7.4-10.4); PLATELET 698 x1000/uL (130-400); RED BLOOD CELL COUNT 3.75 mill/uL (4.2-5.4); RED CELL DISTRIBUTION WIDTH 26.6 % (11.6-14.6); WHITE BLOOD COUNT 11.2 x1000/uL (4.5-11.0)
[2024-11-06 10:23] LABS: CHLORIDE 95 mEq/L (98-107); POTASSIUM 4.3 mEq/L (3.5-5.1); SODIUM 133 mEq/L (136-145)
[2024-11-06 10:24] LABS: CARBON DIOXIDE 30 mEq/L (21-32)
[2024-11-06 10:25] LABS: CALCIUM 8.7 mg/dL (8.7-10.4)
[2024-11-06 10:29] LABS: CREATININE 0.7 mg/dL (0.6-1.0); GLUCOSE 59 mg/dL (70-105); UREA NITROGEN BLOOD 17 mg/dL (9-23)
[2024-11-06 10:31] LABS: DIFFERENTIAL COMMENT 1
[2024-11-06] MEDS: LACTOBACILLUS GG CAPSULE PO SCH (10:55)
[2024-11-06] MEDS ORDERED: ALBU90AE INH (11:43)
[2024-11-06] MEDS ORDERED: LEVO25TA7 PO (11:43)
[2024-11-06] MEDS ORDERED: AMLO10TA80 PO (11:43)
[2024-11-06] MEDS ORDERED: FURO40TA5 PO (11:43)
[2024-11-06] MEDS ORDERED: FOLI-43 PO (11:43)
[2024-11-06] MEDS ORDERED: PANT40TA51 PO (11:43)
[2024-11-06] MEDS ORDERED: LIP40 PO (11:43)
[2024-11-06] MEDS ORDERED: LOSA25TA26 PO (11:44)
[2024-11-06] MEDS ORDERED: ISOS30TA91 PO (11:44)
[2024-11-06] MEDS ORDERED: AMOX1TAB16 PO (11:44)
[2024-11-06] MEDS ORDERED: SULF1TAB44 PO (11:44)
[2024-11-06 12:00] VITALS: BP 126/59; PULSE 85; RESP 18; TEMP 36.7; O2SAT 99
[2024-11-06 14:39] LABS: ANISOCYTOSIS 2+; MICROCYTOSIS 2+; PLATELET ESTIMATE INCREASED
[2024-11-06 15:22] VITALS: BP 126/59; PULSE 85; TEMP 98; O2SAT 99
[2024-11-06 15:42] VITALS: BP 124/78; PULSE 99; RESP 20; TEMP 36.8; O2SAT 95
[2024-11-06] MEDS ORDERED: SULFAMETHOXAZOLE/TRIMETHOPRIM 800/160MG TABLET PO SCH (21:00)
== END 2024-11-06 17:46 | disposition home or self-care (01) | DRG 710 ==
LOC: ER 17:32 → 8WST 20:29 → EDBEDREQ 20:41 → EDBEDREQTM 20:41 → 8WST 10-27 12:03 → CVICU 10-27 13:42 → 3WST 10-30 23:02
PROVIDERS: ADMIT Internal Medicine; ATTEND Internal Medicine
PROC: 0W9B3ZZ Drainage of Left Pleural Cavity, Percutaneous Approach (ICD-10-PCS; principal; 2024-10-24)
PROC: 0BNL4ZZ Release Left Lung, Percutaneous Endoscopic Approach (ICD-10-PCS; 2024-10-27)
PROC: 0BJ08ZZ Inspection of Tracheobronchial Tree, Via Natural or Artificial Opening Endoscopic (ICD-10-PCS; 2024-10-27)
PROC: 0W9B30Z Drainage of Left Pleural Cavity with Drainage Device, Percutaneous Approach (ICD-10-PCS; 2024-10-27)
PROC: B245ZZ4 Ultrasonography of Left Heart, Transesophageal (ICD-10-PCS; 2024-10-27)
PROC: 30233N1 Transfusion of Nonautologous Red Blood Cells into Peripheral Vein, Percutaneous Approach (ICD-10-PCS; 2024-10-27)
PROC: 0JBL0ZZ Excision of Right Upper Leg Subcutaneous Tissue and Fascia, Open Approach (ICD-10-PCS; 2024-11-03)
DX: A41.9 Sepsis, unspecified organism (principal); J96.01 Acute respiratory failure with hypoxia; J86.9 Pyothorax without fistula; I50.23 Acute on chronic systolic (congestive) heart failure; L89.213 Pressure ulcer of right hip, stage 3; J18.9 Pneumonia, unspecified organism; E87.1 Hypo-osmolality and hyponatremia; I42.9 Cardiomyopathy, unspecified; I11.0 Hypertensive heart disease with heart failure; I51.3 Intracardiac thrombosis, not elsewhere classified; K74.60 Unspecified cirrhosis of liver; J44.0 Chronic obstructive pulmonary disease with (acute) lower respiratory infection; D50.9 Iron deficiency anemia, unspecified; D75.838 Other thrombocytosis; E03.9 Hypothyroidism, unspecified; J98.11 Atelectasis; E87.6 Hypokalemia; E83.42 Hypomagnesemia; Q21.12 Patent foramen ovale; Z59.00 Homelessness unspecified; E78.00 Pure hypercholesterolemia, unspecified; F17.210 Nicotine dependence, cigarettes, uncomplicated; R13.10 Dysphagia, unspecified; Z79.899 Other long term (current) drug therapy; Z86.73 Personal history of transient ischemic attack (TIA), and cerebral infarction without residual deficits; Z88.5 Allergy status to narcotic agent; Z88.6 Allergy status to analgesic agent; Z90.710 Acquired absence of both cervix and uterus; T40.5X1A Poisoning by cocaine, accidental (unintentional), initial encounter; F14.188 Cocaine abuse with other cocaine-induced disorder
CPT/HCPCS: 32555; 36415; 36600; 71045; 71250; 74176; 76604; 80048; 80053; 80061; 80076; 80320; 82040; 82375; 82550; 82553; 82805; 82962; 83036; 83605; 83615; 83735; 83880; 83930; 83986; 84100; 84132; 84134; 84145; 84439; 84443; 84484; 85025; 85027; 86038; 86850; 86900; 86920; 87070; 87075; 87116; 88108; 88305; 88312; 93005; 93306; 93970; 94070; 94640; 94660; 94664; 97110; 97116; 97162; 97530; 97535; 99291; A4606; A6261; C1751; C1893; J0456; J0665; J0696; J1171; J1650; J1940; J2004; J2405; J2543; J3010; J3370; J3475; J3480; J3490; J7060; J7626; P9016; G0480